=== PATIENT | female | born 1950 ===

== ENCOUNTER 2021-05-13 05:44 | Day surgery (SDC) | payer OTHER ==
[~2021-05-13 05:44] MED LIST: ADULT ASPIRIN81 MG PO; AMLO PO; COZAAR25 MG PO; CRESTOR20 MG PO; FOLIC A PO; GABAPENTIN PO; GLUMETZA1000 MG PO; LASIX20 MG PO; PEPCID AC20 MG PO; PLAVIX75 MG PO; SINGULAIR10 MG PO
[2021-05-13] MEDS ORDERED: PERCOCET 5-3251 EACH PO (10:27)
== END 2021-05-13 12:20 | disposition home or self-care (01) ==
LOC: CIR.AMB 05:44
PROVIDERS: ATTEND Surgery
DX: R15.9 Full incontinence of feces (principal); K64.2 Third degree hemorrhoids; I10 Essential (primary) hypertension; I49.9 Cardiac arrhythmia, unspecified; Z79.02 Long term (current) use of antithrombotics/antiplatelets; Z79.84 Long term (current) use of oral hypoglycemic drugs; E11.9 Type 2 diabetes mellitus without complications

== ENCOUNTER 2021-05-31 06:21 | Day surgery (SDC) | payer OTHER ==
[~2021-05-31 06:21] MED LIST changes: +PERCOCET 5-3251 EACH PO
== END 2021-05-31 16:10 | disposition home or self-care (01) ==
LOC: CIR.AMB 06:21
PROVIDERS: ATTEND Surgery
DX: R15.9 Full incontinence of feces (principal); K64.2 Third degree hemorrhoids; K62.5 Hemorrhage of anus and rectum; I25.10 Atherosclerotic heart disease of native coronary artery without angina pectoris; Z95.5 Presence of coronary angioplasty implant and graft; J45.909 Unspecified asthma, uncomplicated; Z79.84 Long term (current) use of oral hypoglycemic drugs; E11.9 Type 2 diabetes mellitus without complications; Z88.8 Allergy status to other drugs, medicaments and biological substances